=== PATIENT | male | born 1995 | race Caucasian/White ===

== ENCOUNTER 2017-04-24 20:49 | Emergency (ER) | payer OTHER ==
[2017-04-24 21:04] VITALS: TEMP 97.9
--- NOTE | 2017-04-24 21:40 | EDPHY ---
H & P Time Seen by Provider: 04/24/17 21:06 HPI/ROS: CHIEF COMPLAINT: Odontalgia HISTORY OF PRESENT ILLNESS: 21-year-old immunocompetent male complaining of tooth number 32 pain, scheduled to have his right thumb mandibular 3rd molar removed in a few weeks however states that he has increased pain recently and had a foul taste in his mouth this evening. Visiting from [place] returning tomorrow where he is planning on following up with dentist. Today is Wednesday. Denies fever chills. Denies trismus or drooling. Denies oral trauma. Denies facial swelling. PRIMARY CARE PROVIDER: REVIEW OF SYSTEMS: A ten point review of systems was performed and is negative with the exception of the items mentioned in the HPI PHYSICAL EXAM (Prior to examination, patient consented to physical exam, hands were washed and my usual and customary physical exam procedures followed) 1) GENERAL: Well-developed, well-nourished, alert and oriented. Appears to be in no acute distress. 2) HEAD: Normocephalic 3) HEENT: sclera anicteric. No trismus no drooling. Facial features are symmetrical nasolabial folds are symmetrical. He is tender to percussion tooth number 32 with no evidence of apical abscess. Floor of mouth soft no evidence of Alfa's angina. Submandibular and submental spaces are soft no induration. 4) LUNGS: Breathing comfortably. 5) SKIN: No lesions no vesicles Smoking Status: Never smoked Constitutional: Initial Vital Signs Temperature (C) 36.6 C 04/24/17 20:59 Heart Rate 77 04/24/17 20:59 Respiratory Rate 16 04/24/17 20:59 Blood Pressure 132/77 H 04/24/17 20:59 O2 Sat (%) 95 04/24/17 20:59 O2 Delivery Mode Room Air Allergies/Adverse Reactions: No Known Allergies Allergy (Verified 10/27/15 12:50) Home Medications: Medication Instructions Recorded Amoxicillin Trihydrate 500 mg PO Q8 7 Days cap 04/24/17 [Amoxicillin 500mg cap] Hydrocodone/APAP 5/325 [[place] 1 tab PO Q6 PRN #10 tab 04/24/17 5/325 (RX)] MDM/Departure - MDM Procedures: Procedure: Dental nerve block Indication: Odontalgia Indications risks benefits discussed with patient, he consented, using 0.5% plain bupivacaine dental nerve block administered by myself in my usual and customary manner. Patient tolerated procedure well. ED Course/Re-evaluation: No evidence of Alfa's angina, no evidence of deep space infection or tonsillitis. Do not think that imaging currently indicated. Plan will be analgesia, antibiotics, follow up with dentist when he returns to [place] tomorrow. Usual and customary dental precautions instructions provided.Care of patient under supervision of secondary supervising physician Dr Farias . - Depart Disposition: Home, Routine, Self-Care Clinical Impression: Odontalgia Condition: Good Instructions: Toothache (ED), Hydrocodone/Acetaminophen (By mouth) Additional Instructions: Return to the ER immediately if you cannot swallow, have drooling, fevers, neck stiffness, cannot open your jaw, or any other symptoms that concern you. Prescriptions: Amoxicillin Trihydrate [Amoxicillin 500mg cap] 500 mg PO Q8 7 Days cap Hydrocodone/APAP 5/325 [[place] 5/325 (RX)] 1 tab PO Q6 PRN #10 tab PRN Reason: Pain, Severe Referrals: Follow-up, with a dentist this week [Other] - As per Instructions
[2017-04-24 21:54] VITALS: BP 140/54; PULSE 67; RESP 18; O2SAT 94
== END 2017-04-24 21:55 | disposition home or self-care (01) ==
PROC: 3E0X3BZ Introduction of Anesthetic Agent into Cranial Nerves, Percutaneous Approach (ICD-10-PCS; principal; 2017-04-24)
DX: K08.89 Other specified disorders of teeth and supporting structures (principal)